=== PATIENT | male | born 1940 | race Caucasian/White ===

== ENCOUNTER → 2017-12-15 12:35 | Outpatient (CLI) | payer MEDICARE, OTHER, SELFPAY ==
[2017-12-15 14:20] LABS: Alanine Aminotransferase 34 IU/L (21-72); Albumin 4.2 g/dL (3.5-5.0); Albumin Globulin Ratio 1.5 (1.0-2.8); Alkaline Phosphatase 82 U/L (38-126); Aspartate Aminotransferase 26 IU/L (17-59); BUN Creatinine Ratio 31.3 (6-22); Bilirubin Total 0.5 mg/dL (0.2-1.3); Blood Urea Nitrogen 25 mg/dL (9-20); Calcium 8.9 mg/dL (8.4-10.2); Carbon Dioxide 24 mmol/L (22-32); Chloride 101 mmol/L (98-107); Estimated Glomerular Filt Rate > 60.0 mL/min (>60); Globulin 2.8 g/dL (1.7-4.1); Glucose 124 mg/dL (80-110); HEMOLYSIS < 15 (0-50); Sodium 137 mmol/L (137-145)
== END ==
PROVIDERS: PCP Family Medicine; Visit Provider Physician Assistant
DX: I25.10 Atherosclerotic heart disease of native coronary artery without angina pectoris (principal); I25.5 Ischemic cardiomyopathy; R06.09 Other forms of dyspnea
CPT/HCPCS: 36415; 80053; 83880

== ENCOUNTER → 2017-12-29 10:11 | Outpatient (CLI) | payer MEDICARE, OTHER, SELFPAY ==
[2017-12-29 11:37] LABS: Blood Urea Nitrogen 20 mg/dL (9-20); Carbon Dioxide 25 mmol/L (22-32); Chloride 101 mmol/L (98-107); Estimated Glomerular Filt Rate > 60.0 mL/min (>60); Glucose 102 mg/dL (80-110); HEMOLYSIS < 15 (0-50); Potassium 5.3 mmol/L (3.4-5.1); Sodium 140 mmol/L (137-145)
== END ==
PROVIDERS: PCP Family Medicine; Visit Provider Physician Assistant
DX: I25.5 Ischemic cardiomyopathy (principal)
CPT/HCPCS: 36415; 80048

== ENCOUNTER → 2018-01-13 10:30 | Outpatient (CLI) | payer MEDICARE, OTHER, SELFPAY ==
[2018-01-13 11:28] LABS: BUN Creatinine Ratio 24.4 (6-22); Blood Urea Nitrogen 22 mg/dL (9-20); Calcium 9.7 mg/dL (8.4-10.2); Carbon Dioxide 25 mmol/L (22-32); Chloride 100 mmol/L (98-107); Estimated Glomerular Filt Rate > 60.0 mL/min (>60); Glucose 111 mg/dL (80-110); HEMOLYSIS < 15 (0-50); Potassium 4.3 mmol/L (3.4-5.1); Sodium 137 mmol/L (137-145)
== END ==
PROVIDERS: PCP Family Medicine; Visit Provider Physician Assistant
DX: E78.5 Hyperlipidemia, unspecified (principal)
CPT/HCPCS: 36415; 80048

== ENCOUNTER → 2018-02-08 12:55 | Outpatient (CLI) | payer MEDICARE, OTHER, SELFPAY ==
--- NOTE | 2018-02-10 07:56 | PM.PFT.1 ---
Pulmonary Function Test Referral & Results Date Patient Seen: 02/08/18 Requesting provider: Hanna Brink Results: The spirometry demonstrates an FVC of 3.48 L which is 85% of predicted. The FEV1 was measured at 1.93 L which is 66% of predicted. The FEV1/FVC ratio was 55 which is 76% of predicted. Following the administration of bronchodilator there was no appreciable change. Lung volumes show an SVC of 3.40 L which is 76% of predicted. The diffusing capacity was measured at 11.18 which is 34% gf predicted. No hemoglobin value was provided, so no correction for potential anemia could be made, if appropriate. The maximum voluntary ventilation was reduced. Interpretation: This study demonstrates mild to moderate obstructive lung disease based on reduction in FEV1 without evidence of benefit following bronchodilator There is also mild restrictive lung disease present based on reduction in SVC There is very significant disease at the capillary alveolar level based on severe reduction of diffusing capacity. Clinical correlation suggested
== END ==
PROVIDERS: PCP Family Medicine; Visit Provider Internal Medicine
DX: R06.09 Other forms of dyspnea (principal)
CPT/HCPCS: 94010; 94060; 94726; 94729

== ENCOUNTER → 2018-02-10 12:42 | Outpatient (CLI) | payer MEDICARE, OTHER, SELFPAY ==
--- NOTE | 2018-02-10 | DI.ECHO.S_ITS ---
[facility]---------+ [facility] +---------+ : : [address] : : [place], [place] : : : : [id number] : : : : Phone: [phone]+ Echocardiogram Report + + :Name: HORACE JASSO Study Date: 02/10/2018 Height: 70 in : :[facility] Exam Location: [facility] Weight: 150 lb : : Gender: Male BSA: 1.8 m2 : :: 1940 Age: 77 yrs BP: 128/62 mmHg: :Reason For Study: CAD : : Performed By: Wilber Ray : :Referring: DEANNE TORRES : + + Interpretation Summary 1. Mildly dilated left ventricle with normal size and an estimated EF of 55 to 60% 2. Normal right ventricular size and systolic function. 3. The prosthetic valve is well seated and is functioning well. When compared to the previous echo, the wall motion has improved/normalized and the EF has increased. A prosthetic aortic valve is now present. Procedure: A two-dimensional transthoracic echocardiogram with color flow and Doppler was performed. The study quality was technically adequate. Comparison is made with the echocardiogram of 10/03/17. The patient was in normal sinus rhythm during the exam. Left Ventricle: There is normal left ventricular wall thickness. The left ventricle is mildly dilated. The ejection fraction is estimated to be 55-60%. Right Ventricle: The right ventricle is normal in size and function. Atria: Both atria are mildly dilated. The interatrial septum is intact with no evidence for an atrial septal defect. Mitral Valve: The mitral valve is normal in structure and function. There is trace mitral regurgitation. Aortic Valve: There is a bioprosthetic aortic valve. The prosthetic aortic valve is well-seated. The prosthetic aortic valve function is normal. Velocity ratio is 0.63. No aortic regurgitation is present. Tricuspid Valve: The tricuspid valve leaflets are thin and pliable. There is mild tricuspid regurgitation. The right ventricular systolic pressure is estimated at 30 mmHg assuming a right atrial pressure of 3 mm Hg. Pulmonic Valve: The pulmonic valve is normal in structure and function. There is trace pulmonic regurgitation. Great Vessels: The aortic root is normal size. The dimensions of the ascending aorta are normal. The pulmonary artery is normal size. The IVC is of normal diameter and collapses greater than 50% with a sniff. This suggests a low right atrial pressure of 3 mm Hg. Pericardium/ Pleura There is no pericardial effusion. There is no pleural effusion. MMode/2D Measurements & Calculations LVIDd: 5.7 cm LVOT diam: 2.1 cm LVIDs: 3.5 cm Ao root diam: 2.8 cm FS: 38.0 % asc Aorta Diam: 3.3 cm EPSS: 1.6 cm IVSd: 1.1 cm LVPWd: 1.1 cm LV irizarry. diameter/BSA (cm/m^2): 3.1 LV sys. diameter/BSA (cm/m^2): 1.9 LA dimension: 4.2 cm RA long axis: 4.7 cm LA A2 area: 18.9 cm2 RA area: 18.0 cm2 LA A4 area: 24.2 cm2 RA vol: 59.1 ml LA length (vol): 5.7 cm RA : 32.0 ml/m2 LA vol: 68.6 ml IVC diam: 1.7 cm LA vol index: 37.2 ml/m2 Doppler Measurements & Calculations Ao V2 max: 201.3 cm/sec LVOT Max Fuentes: 128.3 cm/sec Ao V2 mean: 142.8 cm/sec LV V1 max P.6 mmHg Ao max P.2 mmHg LV V1 VTI: 25.2 cm Ao mean P.1 mmHg CLAUDIA(I,D): 2.3 cm2 Ao V2 VTI: 38.0 cm CLAUDIA(V,D): 2.2 cm2 sev ratio: 0.66 CLAUDIA indexed to BSA (cm^2/m^2): 1.2 MV E max fuentes: 57.6 cm/sec TR max fuentes: 261.2 cm/sec MV A max fuentes: 91.0 cm/sec TR max P.3 mmHg MV E/A: 0.63 PA V2 max: 69.8 cm/sec Med Peak E' Fuentes: 5.0 cm/sec PA V2 mean: 52.0 cm/sec E/E' med: 11.6 PA mean P.2 mmHg Lat Peak E' Fuentes: 6.4 cm/sec PA pr(Accel): 46.6 mmHg E/E' lat: 9.0 PA Accel Time: 0.07 sec E/e' average: 10.3 MV dec time: 0.19 sec Pulm A Revs Fuentes: 88.8 cm/sec Reading Physician:MCKENNA
== END ==
PROVIDERS: PCP Family Medicine; Visit Provider Internal Medicine
DX: I25.10 Atherosclerotic heart disease of native coronary artery without angina pectoris (principal); I07.1 Rheumatic tricuspid insufficiency; Z95.2 Presence of prosthetic heart valve
CPT/HCPCS: 93306

== ENCOUNTER 2018-04-20 11:30 | Outpatient (RCR) | payer MEDICARE, OTHER, SELFPAY ==
[2018-01-24 11:12] VITALS: BP 144/92; RESP 16; O2SAT 94; BMI 20.3
--- NOTE | 2018-01-24 13:25 | CR.IEVALNOTE ---
CR Initial Assessment Report 10.05.17 NSTEMI;10.11.2017 CABG X 1 AVR FAILED; 4/6 STENT-LAD;VT ARREST;HTN;LVH CR Cardiac Rehab Initial Assessment Start: 01/24/18 11:11 Freq: Status: Active Protocol: Document 01/24/18 11:12 [facility] (Rec: 01/24/18 12:11 [facility] [id number]) Cardiac Rehabilitation Exercise Risk Risk High % 35-40% EF Comment: vf arrest x2 AICD No Pacemaker No Heart Rhythm NSR Comment 2 episodes of vt arrest post cabg Right Arm Blood Pressure (90/60-120/80 mmHg) 144/92 H Blood Pressure Method Manual Cuff/Auscultation BP Comment: left 142/96 Apical Resting Heart Rate: 81 Target Heart Rate: 100 Strength: Normal Pulse Rhythm: Irregular Respiratory Rate (12-24 breaths/min) 16 Respiratory Effort Non-Labored Lung Sounds: CLEAR BILATERALLY Pulse Oximetry (91-100 %) 94 Cardiac Rehabilitation Nutrition Evaluation Recent Lipid Blood Test Yes Date Blood Test Drawn 10/04/17 Total Cholesterol 143 Triglycerides 84 HDL 56 LDL 70 Lipid Medications Yes Goal for Lipids @ GOAL Lipids Comment ATORVASTATIN 40MG History of Diabetes No Comment EATS VERY HEALTHY. COOKS ALL FOOD FROM [employer]. REVIEWED HIS MENU. SHE IS WORKING ON INCREASING PROTEIN Cardiac Rehabilitation Weight Management Plan Height 177.8 cm Weight 64.41 kg Body Mass Index (BMI) 20.3 Comment GAIN 10# Vitamins & Supplements No Use Daily Intake Type RED WINE Nutrition Evaluation Referral to Diabetes Education No Nurse/Patient Discussion Yes Patient Following Diet Plan Yes Diet Mediterranean Education Primary Language MOHAWK Informatica Mdm Architect Required No Hearing Ability Normal Visual Impairment No Limitations Visual Difficutly None Education on Intake Chest Pain Short of Breath Headache Lightheaded or Dizzy Musculoskeletal Pain General Malaise Tobacco Use Former, Quit <6 Months Goal/Quit Date 10.05.2017 Tobacco Use History Discussion Ask Assess Advise Assist Arrange Environmental Exposure NO DESIRE TO SMOKE ANYMORE. DID NOT GET ANY ASSISTANCE. Referred to Smoking Cessation Class No CR Individual Education & Counseling Yes Educational Class Schedule Given Yes Hx Hypertension Yes Goal KEEPS B/P RECORD AT HOME. HIS READINGS ARE LOWER THAN WHAT I GOT TODAY. HIS B/P CUFF HAS BEEN VERIFIED BY HIS DAUGHTER A RN. Goal of BP <130/80 Yes HTN Education Discussion WILL CONTINUE TO MONITOR Medications Reconciled Yes CR Psychosocial Evaluation Goal HIS GOAL IS TO HAVE ENOUGH ENERGY TO CHOP WOOD FOR THE WINTER. HE IS MOTIVATED TO INCREASE HIS ENDURANCE Identifies Stressors HIS SOB AND A BROKEN RIB FROM CPR Psych Consult No Discussion with Patient Yes Psychotropic Medications No HQ Scoring Scale 5-7 = Mild PHQ >9 No PCP Notified No Comment STATES NOT DEPRESSED Situation LIVES AT HOME WITH HIS . HAS 3 CHILDREN Employment Status Retired Occupation / Employer DID [employer] FOR [employer] Ready for Change Number MOTIVATED CR Psychosocial Eval Continued Sternotomy Incision WELL HEALED Graft Site & Incision CRUZ Heart Murmur NONE Lung Sounds CLEAR Edema NONE Stress Management Class Yes Heart Disease & Emotion Film Yes Readiness Cooperative Motivated Patient's Story FELT MORE AND MORE SOB WITH ACTIVITY AND CHEST PAIN. WENT TO ER HERE DX:NSTEMI. TRANSFERRED TO [facility] FOR CABG X1 AND AVR. FAILED BYPASS [place] ARREST X2. STENTED THE LAD X1. LONG REHAB. 4 WEEKS TOTAL IN HOSPITAL. Treatment Prescribed for Individual Yes Needs No Treatment Change Yes: Please Continue with Cardiopulmonary Rehabilitation as Ordered Date 01/24/18 Document 01/24/18 13:05 AA (Rec: 01/24/18 13:12 AA [id number]) Cardiac Rehabilitation Exercise Fall Risk History of Falling (Immediate or No Previous) Secondary Diagnosis (More Than 2 Medical Yes Diagnoses) Ambulatory Aid None/bed rest/nurse assist IV/Heparin Lock No Gait/Transferring Normal/bedrest/immobile Mental Status Oriented to own ability Score Total 15 Risk Level Low Fall Risk Action Implement Enid Fall Risk Precautions Comment Physio ball next to rail Assistive Devices None Pollock Activity Status Index 6.6 Home Exercise Yes Mode Comment: Walking Duration Comment: 10 mins Frequency Comment: 2-3x/day Symptoms: Back Pain Limited Range of Motion Muscle Spasms Muscle Weakness Neck Pain Body Alignment Posture Forward Head Thoracic Kyphosis Ambulation Assistive Device None Orthotic/Prosthetic Devices or Brace: No Comment COPD gets winded easily, monitor pulse/ox Exercise Treadmill Results 12 min METS 2.67 Angina with Exercise no Exercise Tolerance Good Additional Comment Responds better to increase in incline over speed. 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 Increase stamina and endurance in CR in 6-8 weeks. Patient Retirement Goal(s) PT wants to be able to cut, split and haul firewood from maurice at home to the home, increase strength and pollock score in CR in 12 weeks. CR Exercises Prescription Exercise Duration (minutes) 20 METs (resistance level) 3 Frequency 2x/wk RPE 11-14 Comment increase as tolerated Exercise Duration (minutes) 20 METs (resistance level) 3 Frequency 2x/wk RPE 11-14 Comment increase as tolerated Pounds 4 Number of Reps 12 Number of Sets 2 Frequency 1x/wk RPE 11-15 Comment increase as tolerated Band Resistance 3 Number of Reps 12 Number of Sets 1 Exercise Tolerance Good Frequency 1x/wk RPE 11-15 Comment increase as tolerated
[2018-02-23 15:36] VITALS: BP 130/66
[2018-03-23 15:17] VITALS: BP 168/84
[2018-04-20 15:27] VITALS: BP 144/88; BMI 21.9
== END 2018-05-03 14:44 ==
LOC: CAR 11:30
PROVIDERS: PCP Family Medicine; Visit Provider Family Medicine
DX: I21.3 ST elevation (STEMI) myocardial infarction of unspecified site (principal)
CPT/HCPCS: 93798

== ENCOUNTER 2018-08-02 11:30 | Outpatient (RCR) | payer MEDICARE, OTHER, SELFPAY ==
[2018-05-01 14:39] VITALS: BP 132/80; RESP 14; O2SAT 95
--- NOTE | 2018-05-02 16:04 | PR.IEVALNOTE ---
Current Diagnoses Chronic obstructive pulmonary disease, unspecified (05/02/18) Past Medical History (Last Updated 03/30/18 @ 09:44 by Alex Ruiz MD) Congestive heart failure (Chronic) Vitamin D deficiency (Chronic) Coronary artery disease (Chronic) COPD (chronic obstructive pulmonary disease) (Chronic) Essential hypertension (Chronic) Hyperlipidemia (Chronic) BPH (benign prostatic hyperplasia) (Chronic) Lateral wall myocardial infarction (Chronic) Anticoagulated on warfarin (Resolved) Deficient knowledge of valve replacement (Resolved) Fractures (Resolved 2017) Lower extremity edema (Resolved) Provider Team Visit Care Team Role Provider Type Ankush Montemayor MD Attending Provider Physician Primary Care Provider Specialty: [facility] Address: [address] [place] [address], [facility] Email: [email or web address] Pulmonary Rehab Initial Evaluation [place] Pulmonary Rehab Inital Assessment Start: 05/01/18 14:32 Freq: Status: Active Protocol: Document 05/01/18 14:39 RENA (Rec: 05/01/18 14:42 RENA [id number]) [place] Exercise Assessment Dx: COPD Primary Language [employer] Teacher Required No Hearing Ability Normal Visual Impairment No Limitations Visual Difficutly None Visual Assist None Assistive Devices None History of Falling (Immediate or No Previous) Secondary Diagnosis (More Than 2 Medical Yes Diagnoses) Ambulatory Aid None/bed rest/nurse assist IV/Heparin Lock No Gait/Transfer Normal/bedrest/immobile Mental Status Oriented to own ability Comment pt has been in cardiac rehab and exercising 3x/week regularly. Pt also walks to [facility] which is 1 mile form home [place] Vital Signs Pulse Oximetry (91-100 %) 95 Nasal Cannula No Respiratory Rate (12-24 breaths/min) 14 Respiratory Effort Non-Labored Respiratory Depth Normal Assessment clear to auscultation no wheeze rhonchi, faint crackles in Left lower base Left Arm Blood Pressure (90/60-140/90 mmHg) 132/80 Blood Pressure Method Manual Cuff/Auscultation Blood Pressure Position Sitting [place] Six Minute Walk Test Oxygen Delivery Method Room Air Respiratory Rate (breaths/min) 14 Pulse Rate (beats/min) 73 O2 Saturation by Pulse Oximetry (%) 97 Ambulation Distance (feet) 250 Pulse Rate (beats/min) 81 Ambulation Distance (feet) 250 O2 Saturation by Pulse Oximetry (%) 96 Pulse Rate (beats/min) 86 Ambulatory Distance (feet) 250 O2 Saturation by Pulse Oximetry (%) 97 Pulse Rate (beats/min) 81 Ambulation Distance (feet) 200 O2 Saturation by Pulse Oximetry (%) 97 Pulse Rate (beats/min) 85 Ambulation Distance (feet) 250 O2 Saturation by Pulse Oximetry (%) 97 PUlse Rate (beats/min) 85 Ambulation Distance (feet) 225 O2 Saturation by Pulse Oximetry (%) 85 Respiratory Rate (breaths/min) 16 Pulse Rate (beats/min) 68 O2 Saturation by Pulse Oximetry (%) 98 Activity Tolerance Good Distance 1425 Divina RPE Scale 12 Oriented to RPE Scale Yes Dyspnea 3 Oriented to Dyspnea Scale Yes [place] Exercise Goals Exercise Goals use increased interval training to improve muscle strength and stamina GINGER Number and Comment 6.60 mets Short Term learn about chronic lung disease and how to manage it Mems Engineer improve strength and stamina [place] Nutrition Assessment PFT Date 02/08/18 Forced Vital Capacity (FVC) 3.48 85% Slow Vital Capacity (SVC) 3.40 76% Forced Exp. Volume/Forced Vital Cap 55 76% Ratio (FEV1/FVC Ratio) Forced Expiratory Volume in 1 sec. 1.63 66% Diffusing Capacity of the Lung (DLCO) 34% [place] Education Pre-Test Score 93 Tobacco Use Former, Quit <6 Months Tobacco Product Used cigarettes Total Years Used 63 Packs Per Day 1 Use Yes Type wine Amount 1-2 glasses Frequency daily Education Topics Breathing Retraining Discussed Education Requirements on Yes Intake [place] Psychosocial Initial Assess HADS Score 3 HADS Score 4 Marital Status Referral Needed No
--- NOTE | 2018-05-31 16:10 | PR.REVALNOTE ---
Current Diagnoses Chronic obstructive pulmonary disease, unspecified (05/31/18) Past Medical History (Last Updated 03/30/18 @ 09:44 by Alex Ruiz MD) Congestive heart failure (Chronic) Vitamin D deficiency (Chronic) Coronary artery disease (Chronic) COPD (chronic obstructive pulmonary disease) (Chronic) Essential hypertension (Chronic) Hyperlipidemia (Chronic) BPH (benign prostatic hyperplasia) (Chronic) Lateral wall myocardial infarction (Chronic) Anticoagulated on warfarin (Resolved) Deficient knowledge of valve replacement (Resolved) Fractures (Resolved 2018) Lower extremity edema (Resolved) Provider Team Visit Care Team Role Provider Type Ankush Montemayor MD Attending Provider Physician Primary Care Provider Specialty: [facility] Practice Address: [address] [place] [address], [employer] Email: [email or web address] Pulmonary Rehab Re-Evaluation [place] Pulmonary Rehab. Re-Assessment Start: 05/01/18 14:32 Freq: Status: Active Protocol: Document 05/31/18 16:03 RENA (Rec: 05/31/18 16:10 Fartun [id number]) [place] Exercise Re-Assessment New Session Number 1-13 Type Nustep Treadmill Rower METs (resistance level) 5.54 Rwr,4.06 TM, 3.68 NS % Improvement 7%Rwr, 7%TM, 12% NS Interval Training Yes: 6.95TM 7.02 NS Shortness of Breath with Exercise Yes Desaturation with Exercise No Free Weight Yes: 5# 12r 2s Band Level Yes: #4 [place] Education Re-Assessment Topics Normal Anatomy and Physiology Chronic Lung Disease Description and Interpretation Medical Tests Breathing Retraining Goals Pt will Master PLB and Diaphragmatic Breathing Pt will Master Energy Conserving Techniques Pt will learn exercise safety Pt will continue ED topics until completion [place] Psychosocial Re-Assessment Patient in Class Regularly Yes Goals Pt will continue to attend classes 3x wk Participate in social and educational discussion Received emotional support from family/friends
--- NOTE | 2018-07-17 10:53 | PR.REVALNOTE ---
Current Diagnoses Chronic obstructive pulmonary disease, unspecified (07/17/18) Past Medical History (Last Updated 03/30/18 @ 09:44 by Alex Ruiz MD) Congestive heart failure (Chronic) Vitamin D deficiency (Chronic) Coronary artery disease (Chronic) COPD (chronic obstructive pulmonary disease) (Chronic) Essential hypertension (Chronic) Hyperlipidemia (Chronic) BPH (benign prostatic hyperplasia) (Chronic) Lateral wall myocardial infarction (Chronic) Anticoagulated on warfarin (Resolved) Deficient knowledge of valve replacement (Resolved) Fractures (Resolved 2018) Lower extremity edema (Resolved) Provider Team Visit Care Team Role Provider Type Ankush Montemayor MD Attending Provider Physician Primary Care Provider Specialty: [facility] Practice Address: [address] [place] [address], [facility] Email: [email or web address] Pulmonary Rehab Re-Evaluation [place] Pulmonary Rehab. Re-Assessment Start: 05/01/18 14:32 Freq: Status: Active Protocol: Document 05/31/18 16:03 RENA (Rec: 05/31/18 16:10 RENA [id number]) [place] Exercise Re-Assessment New Session Number 1-13 Type Nustep Treadmill Rower METs (resistance level) 5.54 Rwr,4.06 TM, 3.68 NS % Improvement 7%Rwr, 7%TM, 12% NS Interval Training Yes: 6.95TM 7.02 NS Shortness of Breath with Exercise Yes Desaturation with Exercise No Free Weight Yes: 5# 12r 2s Band Level Yes: #4 [place] Education Re-Assessment Topics Normal Anatomy and Physiology Chronic Lung Disease Description and Interpretation Medical Tests Breathing Retraining Goals Pt will Master PLB and Diaphragmatic Breating Pt will Master Energy Conserving Techniques Pt will learn exercise safety Pt will continue ED topics until completion [place] Psychosocial Re-Assessment Patient in Class Regularly Yes Goals Pt will continue to attend classes 3x wk Participate in social and educational discussion Received emotional support from family/friends Document 07/17/18 10:49 RENA (Rec: 07/17/18 10:53 RENA [id number]) [place] Exercise Re-Assessment New Session Number 14-26 Type Treadmill Rower Elliptical METs (resistance level) TM 4.35,RWR,5.54,ELL 3.43 % Improvement TM7%, EL9% Interval Training Yes: 7.82 TM Shortness of Breath with Exercise Yes Desaturation with Exercise No Free Weight Yes: 5# 12R 2S Band Level Yes: #5 [place] Education Re-Assessment Topics Normal Anatomy and Physiology Chronic Lung Disease Description and Interpretation Medical Tests Breathing Retraining Bronchial Hygiene Medication Benefits of Exercise Activities of daily living/ Leisure Activities Goals Pt will Master PLB and Diaphragmatic Breathing Pt will Master Energy Conserving Techniques Pt will learn exercise safety Pt will continue ED topics until completion [place] Psychosocial Re-Assessment Patient in Class Regularly Yes Interventions Pt attending class regularly Goals Pt will continue to attend classes 3x wk Participate in social and educational discussion Received emotional support from family/friends
--- NOTE | 2018-08-02 16:04 | PR.DCNOTE ---
Current Diagnoses Chronic obstructive pulmonary disease, unspecified (08/02/18) Past Medical History (Last Updated 03/30/18 @ 09:44 by Alex Ruiz MD) Congestive heart failure (Chronic) Vitamin D deficiency (Chronic) Coronary artery disease (Chronic) COPD (chronic obstructive pulmonary disease) (Chronic) Essential hypertension (Chronic) Hyperlipidemia (Chronic) BPH (benign prostatic hyperplasia) (Chronic) Lateral wall myocardial infarction (Chronic) Anticoagulated on warfarin (Resolved) Deficient knowledge of valve replacement (Resolved) Fractures (Resolved 2018) Lower extremity edema (Resolved) Provider Team Visit Care Team Role Provider Type Ankush Montemayor MD Attending Provider Non-Staff Primary Care Provider Specialty: [facility] Address: [address] [place] [address], [address], [place], [address] Email: Pulmonary Rehab Discharge Evaluation [place] Pulmonary Rehab. DC Assessment Start: 05/01/18 14:32 Freq: Status: Active Protocol: Document 08/02/18 15:50 RENA (Rec: 08/02/18 16:04 RENA [id number]) [place] Exercise Discharge Assess Session 9 Type Treadmill Rower Elliptical METs (resistance level) 6.41elli, 5.64rwr % Improvement 104%delma 2% Interval Training Yes: delma 13.36 Shortness of Breath with Exercise Yes Desaturation with Exercise No Free Weight Yes: 6# 12r 2s Band Level Yes: #6 [place] Nutrition DC Assessment Patient Ready Yes Reason Completed Max Sessions [place] Education DC Assessment Education Topics Normal Pulmonary Anatomy and Physiology Chronic Lung Disease Description and Interpretation of Medical Tests Breathing Retraining Bronchial Hygiene Medications Benefits of Exercise Activities of Daily Living/ Leisure Activities Eating Right Irritant Avoidance/Prevention of Respiratory Infection Coping with Chronic Lung Disease Oxygen How and When Asthma Education Target Goals Pt was educated on home exercise prescription Pt educated on home resistance training Pt educated on oxygen therapy for home PT educated on medication's taken at home Pt educated on PBL and relaxation techniques [place] Psychosocial DC Assessment HADS Depression Score 3 HADS Anxiety Score 4 Phase III Yes Referral Needed No [place] Six Minute Walk Test Oxygen Delivery Method Room Air Respiratory Rate (breaths/min) 16 Pulse Rate (beats/min) 77 O2 Saturation by Pulse Oximetry (%) 98 Pulse Rate (beats/min) 90 Ambulation Distance (feet) 300 O2 Saturation by Pulse Oximetry (%) 96 Pulse Rate (beats/min) 97 Ambulation Distance (feet) 300 O2 Saturation by Pulse Oximetry (%) 96 Pulse Rate (beats/min) 95 Ambulatory Distance (feet) 300 O2 Saturation by Pulse Oximetry (%) 97 Pulse Rate (beats/min) 100 Ambulation Distance (feet) 300 O2 Saturation by Pulse Oximetry (%) 96 Pulse Rate (beats/min) 95 Ambulation Distance (feet) 300 O2 Saturation by Pulse Oximetry (%) 98 PUlse Rate (beats/min) 104 Ambulation Distance (feet) 325 O2 Saturation by Pulse Oximetry (%) 97 Respiratory Rate (breaths/min) 14 Pulse Rate (beats/min) 94 O2 Saturation by Pulse Oximetry (%) 96 Activity Tolerance Good Distance 1825 Divina RPE Scale 13 Oriented to RPE Scale Yes Dyspnea 4 Oriented to Dyspnea Scale Yes
== END 2018-08-03 09:08 ==
LOC: PUL 11:30
PROVIDERS: PCP Family Medicine; Visit Provider Family Medicine
DX: J44.9 Chronic obstructive pulmonary disease, unspecified (principal)
CPT/HCPCS: G0237; G0238

== ENCOUNTER → 2018-11-06 12:21 | Outpatient (CLI) | payer MEDICARE, OTHER, SELFPAY ==
--- NOTE | 2018-11-06 12:25 | DI.RAD.S_ITS ---
PROCEDURE: XR CHEST 2V INDICATIONS: coughing up blood TECHNIQUE: 2 views of the chest were acquired. COMPARISON: [facility], CHEST 2 VIEW, 10/03/2017, 9:28. [facility], , CHEST 2 VIEW, 03/13/2015, 12:40. FINDINGS: Surgical changes and devices: Sternotomy wires, expandable stent aortic valve annulus present, no operative complications seen. Lungs and pleura: Lungs are abnormal with a mild interstitial prominence previously present and also flattening of the diaphragms with an appearance suggestive of prior smoking history. No pleural effusions or pneumothorax. Mediastinum: Mediastinal contours are normal. Heart size is normal. Bones and chest wall: No suspicious bony abnormalities. Soft tissues appear unremarkable. IMPRESSION: Presumed prior smoking history, flattening of the diaphragms on the lateral view may reflect mild COPD. Aortic valve expandable annulus stent now present with sternotomy wires. Chronic mild interstitial prominence but no sign of cardiomegaly, aneurysmal dilatation of the aorta, or CHF. Dictated by: Aguilar Riley M.D. on 11/06/2018 at 13:11 Approved by: Aguilar Riley M.D. on 11/06/2018 at 13:12
== END ==
PROVIDERS: PCP Student in an Organized Health Care Education/Training Program; Visit Provider Nurse Practitioner
DX: R04.2 Hemoptysis (principal); J44.9 Chronic obstructive pulmonary disease, unspecified; Z95.2 Presence of prosthetic heart valve
CPT/HCPCS: 71046

== ENCOUNTER → 2019-02-16 15:45 | Outpatient (CLI) | payer MEDICARE, OTHER, SELFPAY | PROVIDERS: PCP Student in an Organized Health Care Education/Training Program; Visit Provider Internal Medicine Critical Care Medicine | DX: R91.8 Other nonspecific abnormal finding of lung field (principal) ==

== ENCOUNTER → 2019-02-19 10:25 | Outpatient (CLI) | payer MEDICARE, OTHER, SELFPAY | PROVIDERS: PCP Student in an Organized Health Care Education/Training Program; Visit Provider Internal Medicine Critical Care Medicine | DX: R91.8 Other nonspecific abnormal finding of lung field (principal) | CPT/HCPCS: 87070; 87205; 88108 ==

== ENCOUNTER → 2019-02-20 10:13 | Outpatient (CLI) | payer MEDICARE, OTHER, SELFPAY | PROVIDERS: PCP Student in an Organized Health Care Education/Training Program; Visit Provider Internal Medicine Critical Care Medicine | DX: R91.8 Other nonspecific abnormal finding of lung field (principal) | CPT/HCPCS: 87070; 87077; 87205; 88108 ==

== ENCOUNTER → 2019-02-21 11:21 | Outpatient (CLI) | payer MEDICARE, OTHER, SELFPAY | PROVIDERS: PCP Student in an Organized Health Care Education/Training Program; Visit Provider Internal Medicine Critical Care Medicine | DX: R91.8 Other nonspecific abnormal finding of lung field (principal) | CPT/HCPCS: 87070; 87205; 88108 ==

== ENCOUNTER → 2019-12-13 10:54 | Outpatient (CLI) | payer MEDICARE, OTHER, SELFPAY ==
[2019-12-13 13:10] LABS: BUN Creatinine Ratio 20.5 (6-22); Blood Urea Nitrogen 17 mg/dL (9-20); Calcium 9.3 mg/dL (8.4-10.2); Carbon Dioxide 22 mmol/L (22-32); Chloride 107 mmol/L (98-107); Estimated Glomerular Filt Rate > 60.0 mL/min (>60); Glucose 99 mg/dL (80-110); HEMOLYSIS < 15 (0-50); Potassium 4.6 mmol/L (3.4-5.1); Sodium 138 mmol/L (137-145)
== END ==
PROVIDERS: PCP Student in an Organized Health Care Education/Training Program; Referring Provider Student in an Organized Health Care Education/Training Program; Visit Provider Student in an Organized Health Care Education/Training Program
DX: I10 Essential (primary) hypertension (principal)
CPT/HCPCS: 36415; 80048

== ENCOUNTER → 2020-10-08 09:13 | Outpatient (CLI) | payer MEDICARE, OTHER, SELFPAY ==
[2020-10-08 11:15] LABS: COVID19 -Nasal RAPID Negative (Negative)
== END ==
PROVIDERS: PCP Student in an Organized Health Care Education/Training Program; Visit Provider Student in an Organized Health Care Education/Training Program
DX: Z20.822 Contact with and (suspected) exposure to COVID-19 (principal)
CPT/HCPCS: 87635; C9803

== ENCOUNTER 2021-03-23 14:12 | Emergency (ER) | payer MEDICARE, SELFPAY ==
[2021-03-23 14:25] VITALS: BP 164/100; PULSE 93; RESP 15; TEMP 36.7; O2SAT 95; BMI 23.6
[2021-03-23 14:27] VITALS: BP 159/101; PULSE 98; O2SAT 95
[2021-03-23 14:30] VITALS: BP 169/100; PULSE 91; RESP 28; O2SAT 96
--- NOTE | 2021-03-23 14:30 | DI.RAD.S_ITS ---
PROCEDURE: XR CHEST 1V INDICATIONS: Possible stroke TECHNIQUE: One view of the chest was acquired. COMPARISON: [facility], CR, XR CHEST 2V, 11/06/2018, 12:31. FINDINGS: Surgical changes and devices: Sternal wires are noted. Lungs and pleura: Mild appearance of increased linear right basilar opacities. No pleural effusions or pneumothorax. There is flattening of the hemidiaphragms and mild hyperinflation suggestive of COPD. Mediastinum: Mediastinal contours appear normal. Heart size is normal. Bones and chest wall: No suspicious bony lesions. Overlying soft tissues appear unremarkable. IMPRESSION: Mild increased appearance of linear right basilar opacities suggestive of atelectasis/scarring. Dictated by: Sandra Watson M.D. on 03/23/2021 at 14:51 Approved by: Sandra Watson M.D. on 03/23/2021 at 14:52
--- NOTE | 2021-03-23 14:33 | DI.CT.S_ITS ---
PROCEDURE: CT STROKE INDICATIONS: sent for blockage in left eye since Tuesday,Sami sent him TECHNIQUE: Noncontrast 4.5 mm thick angled axial sections acquired from the foramen magnum to the vertex, with coronal reformats. For radiation dose reduction, the following was used: automated exposure control, adjustment of mA and/or kV according to patient size. COMPARISON: None. FINDINGS: Image quality: Excellent. CSF spaces: Basal cisterns are patent. No extra-axial fluid collections. The ventricles are symmetric in size and shape. Brain: No intracranial bleeds or masses. There is cerebral volume loss for age, with resultant ventricular and sulcal prominence. There are periventricular and deep white matter chronic small vessel ischemic changes. There is intracranial internal carotid artery atherosclerosis. Skull and face: Calvarium and visualized facial bones appear intact, without suspicious lesions. Sinuses: Visualized sinuses and mastoids are clear. IMPRESSION: 1. No acute intracranial process. 2. Moderate atrophy and chronic microvascular ischemic changes. The above findings were discussed Dr. Mickey Stauffer on 03/23/21 at 2:48 p.m. This study fulfills neurological imaging criteria for inclusion or exclusion of acute stroke therapies based on available published neurological guidelines. Dictated by: Sandra Watson M.D. on 03/23/2021 at 14:47 Approved by: Sandra Watson M.D. on 03/23/2021 at 14:48
[2021-03-23 14:44] VITALS: BP 149/72; PULSE 86; RESP 29; O2SAT 96
[2021-03-23 14:46] LABS: Add Manual Diff / Slide Review NO; Basophils Absolute Auto 0 /uL (0-100); Basophils Percent Auto 0.4 % (0-2); Eosinophils Absolute Auto 100 /uL (0-450); Eosinophils Percent Auto 1.6 % (2-4); Hemoglobin 13.7 g/dL (13.5-17.5); Lymphocytes Absolute Auto 1400 /uL (1100-4500); Lymphocytes Percent Auto 15.8 % (25-40); Mean Corpuscular HGB Conc 34.2 % (30-36); Mean Corpuscular Hemoglobin 34.3 PG (26-34); Mean Corpuscular Volume 100.3 fL (80-100); Monocytes Absolute Auto 900 /uL (0-900); Monocytes Percent Auto 10.8 % (3-14); Neutrophils Absolute Auto 6100 /uL (1500-7000); Neutrophils Percent Auto 71.4 % (50-75); Platelet Count 219 X10^3/uL (150-400); Red Blood Cell Count 3.99 X10^6/uL (4.5-5.9); Red Cell Distribution Width 13.8 % (11.6-14.8); White Blood Cell Count 8.6 X10^3/uL (4.5-11.0)
[2021-03-23 14:51] LABS: Prothrombin Time 11.8 SECONDS (10.1-12.7)
[2021-03-23 14:54] LABS: PTT Partial Thromboplastin Tim 36 SECONDS (26.4-36.2)
[2021-03-23 15:00] VITALS: PULSE 83; RESP 21; O2SAT 93
[2021-03-23 15:00] LABS: Alanine Aminotransferase 16 IU/L (<50); Albumin 4.5 g/dL (3.5-5.0); Albumin Globulin Ratio 1.6 (1.0-2.8); Alkaline Phosphatase 92 U/L (38-126); Aspartate Aminotransferase 21 IU/L (17-59); BUN Creatinine Ratio 20.6 (6-22); Bilirubin Total 0.9 mg/dL (0.2-1.3); Blood Urea Nitrogen 20 mg/dL (9-20); Calcium 9.3 mg/dL (8.4-10.2); Carbon Dioxide 23 mmol/L (22-32); Chloride 108 mmol/L (98-107); Creatine Kinase 48 U/L (55-170); Estimated Glomerular Filt Rate > 60.0 mL/min (>60); Globulin 2.9 g/dL (1.7-4.1); Glucose 128 mg/dL (80-110); HEMOLYSIS < 15 (0-50); Potassium 3.9 mmol/L (3.4-5.1); Sodium 139 mmol/L (137-145); Total Protein 7.4 g/dL (6.3-8.2)
[2021-03-23 15:01] VITALS: BP 132/76; PULSE 83; RESP 24; O2SAT 93
--- NOTE | 2021-03-23 15:11 | ED.NEUROSD ---
HPI - Neuro Symptoms/Deficit General Chief Complaint: Neuro Symptoms/Deficit Stated Complaint: referred by Dr. Gallardo for scan of neck Time Seen by Provider: 03/23/21 15:03 Source: patient Mode of arrival: Ambulatory Limitations: no limitations History of Present Illness HPI Narrative: Patient sent here from his director of business applications, Dr. Gallardo. Dr. Gallardo spoke with me by phone that he is concerned that patient needs stroke workup. He saw patient in his office today and diagnosed of left retinal artery occlusion. Patient states he awoke this past Tuesday, 2 days ago with vision changes in his left eye. It has improved. Patient has no history of stroke. Is on Plavix for coronary disease. Denies any facial droop slurred speech or any limb weakness. No headache. Patient CT scan unremarkable. EKG and laboratory studies have returned. I spoke with patient that he needs to stay for stroke workup. He states he cannot stay. He states his is in the car waiting for him. [place] Please see documentation below for leaving against medical advice. Understands that this blocked artery in the left eye could be signs of a stroke and future strokes can happen. He is on Plavix for coronary artery disease. No chest pain. No confusion. Patient did not want to wait for my completion of my neurologic exam and stroke scale. He did not want any further testing or angiogram or MRI. He wants to leave now On Anticoagulants: Yes (plavix) Related Data Home Medications Medication Instructions Recorded Confirmed isosorbide mononitrate 30 mg 15 mg PO DAILY tab 12/13/19 09/29/20 tablet,extended release 24 hr Previous Rx's Medication Instructions Recorded acetaminophen 325 mg tablet 650 mg PO Q6H PRN #30 tab 11/28/17 (Tylenol) clopidogrel 75 mg tablet 75 mg PO DAILY #90 tab 12/13/19 finasteride 5 mg tablet 5 mg PO DAILY #90 tab 12/13/19 albuterol sulfate 90 mcg/actuation 2 puff INHALATION Q4-6H PRN #6.7 g 09/29/20 aerosol inhaler clobetasol 0.05 % topical cream 1 applic TOP BEDTIME #15 g 09/29/20 tamsulosin 0.4 mg capsule 0.8 mg PO DAILY #180 cap 09/29/20 atorvastatin 40 mg tablet 40 mg PO DAILY #90 tab 10/27/20 metoprolol succinate 25 mg 25 mg PO BID #180 tab 11/05/20 tablet,extended release 24 hr losartan 50 mg tablet 50 mg PO DAILY #90 tab 11/26/20 Allergies Allergy/AdvReac Type Severity Reaction Status Date / Time Penicillins Allergy Intermediate HIVES Verified 03/23/21 14:31 Review of Systems Review of Systems Narrative: GENERAL: Denies chills, fatigue, malaise, fever, sweats. HEENT: Denies sinus pain, ear pain, sore throat, complains of left vision changes RESPIRATORY: Denies dyspnea, cough CARDIOVASCULAR: Denies chest pain, palpitations GASTROINTESTINAL: Denies nausea, vomiting, abdominal pain : Denies dysuria, frequency, hematuria MUSCULOSKELETAL: denies muscle or bony pain SKIN: Denies rash, skin lesions NEUROLOGIC: Denies weakness, numbness ROS Unobtainable: All systems reviewed & are unremarkable except as noted in HPI and below Hematologic/Lymphatic On Anticoagulants: Yes (plavix) Patient History Medical History Anticoagulated on warfarin BPH (benign prostatic hyperplasia) Congestive heart failure COPD (chronic obstructive pulmonary disease) Coronary artery disease Deficient knowledge of valve replacement Essential hypertension Fractures (2018) Hyperlipidemia Lateral wall myocardial infarction Lower extremity edema Vitamin D deficiency Surgical History Hx of cataract surgery (2016) S/P aortic valve replacement with bioprosthetic valve S/P CABG (coronary artery bypass graft) (10/2017) Family History Father Heart disease Mother Cancer Sister Cancer Social History marital status: Smoking Status: Former smoker Tobacco: How many years used: 63 alcohol intake: current substance use type: does not use Smoking Status: Former smoker alcohol intake frequency: holidays/special occasions only Substance Use Type: does not use Exam Narrative Exam Narrative: GENERAL: in no distress, not toxic not dyspneic HEAD: Normocephalic. EYES: Pupils equal round No scleral icterus. No injection no discharge ENT: Mucous membranes moist. NECK: Trachea midline. CARDIOVASCULAR: Regular rate and rhythm without murmurs RESPIRATORY: Clear to auscultation. Breath sounds equal bilaterally. No wheezes, rales, or rhonchi. GASTROINTESTINAL: Abdomen soft, non-tender EXTREMITIES: No gross deformities. BACK: No flank tenderness. NEURO: AOx4. Clear speech no facial droop light touch bilateral face hands and legs. Strong equal a and p mechanic. SKIN: Warm and dry PSYCH: Not anxious, is cooperative Initial Vital Signs Initial Vital Signs: Vital Signs Temperature 98.0 F 03/23/21 14:25 Pulse Rate 93 H 03/23/21 14:25 Respiratory Rate 15 03/23/21 14:25 Blood Pressure 164/100 H 03/23/21 14:25 Pulse Oximetry 95 03/23/21 14:25 Course Course Course Narrative: No new issues during course of stay. Please see leaving against medical advice documentation. Orders Ordered: ED Orders 03/23/21 14:30 XR chest 1V Stat EKG-12 Lead Stat 03/23/21 14:33 CT Stroke Stat Complete Blood Count AUTO DIFF Stat Comprehensive Metabolic Panel Stat Partial Thromboplastin Time Stat Prothrombin Time INR Stat Troponin & CK Cardiac Panel Stat Reevaluation(s) Reevaluation #1: Patient states he cannot stay for stroke workup. I discussed with him leaving against medical advice Time: 15:18 Consultations Consultation #1: Spoke with tele stroke, by phone, Dr. Luciano, she agrees that patient should stay for stroke workup. Otherwise will need to leave against medical advice. Additional Consultation(s): Received call from radiologist Dr. Watson, CT head negative at 2:48 p.m. Vital Signs Vital signs: Vital Signs - 8 hr 03/23/21 14:25 03/23/21 14:27 03/23/21 14:30 Temperature 98.0 F Pulse Rate 93 H 98 H 91 H Respiratory Rate 15 28 H Blood Pressure 164/100 H 159/101 H 169/100 H Pulse Oximetry 95 95 96 03/23/21 14:44 03/23/21 15:00 03/23/21 15:01 Temperature Pulse Rate 86 83 83 Respiratory Rate 29 H 21 24 Blood Pressure 149/72 H 132/76 Pulse Oximetry 96 93 93 MDM - Neuro Symptoms/Deficit Differential Diagnosis Differential diagnosis: Likely cerebrovascular accident, transient cerebral ischemia and other (Retinal artery occlusion) Lab Data Result diagrams: 03/23/21 14:33 03/23/21 14:33 Labs: Lab Results 03/23/21 03/23/21 03/23/21 Range/Units 14:33 14:33 14:33 WBC 8.6 (4.5-11.0) X10^3/uL RBC 3.99 L (4.5-5.9) X10^6/uL Hgb 13.7 (13.5-17.5) g/dL Hct 40.0 L (41-53) % MCV 100.3 H (80-100) fL MCH 34.3 H (26-34) PG MCHC 34.2 (30-36) % RDW 13.8 (11.6-14.8) % Plt Count 219 (150-400) X10^3/uL Neut % (Auto) 71.4 (50-75) % Lymph % (Auto) 15.8 L (25-40) % Crenshaw % (Auto) 10.8 (3-14) % Eos % (Auto) 1.6 L (2-4) % Baso % (Auto) 0.4 (0-2) % Neut # (Auto) 6100 (6861-8824) /uL Lymph # (Auto) 1400 (1613-8571) /uL Crenshaw # (Auto) 900 (0-900) /uL Eos # (Auto) 100 (0-450) /uL Baso # (Auto) 0 (0-100) /uL PT 11.8 (10.1-12.7) SECONDS INR 1.0 (0.9-1.3) APTT 36 (26.4-36.2) SECONDS Sodium 139 (137-145) mmol/L Potassium 3.9 (3.4-5.1) mmol/L Chloride 108 H (98-107) mmol/L Carbon Dioxide 23 (22-32) mmol/L BUN 20 (9-20) mg/dL Creatinine 0.97 (0.66-1.25) mg/dL Estimated GFR > 60.0 (>60) mL/min BUN/Creatinine Ratio 20.6 (6-22) Glucose 128 H (80-110) mg/dL Calcium 9.3 (8.4-10.2) mg/dL Total Bilirubin 0.9 (0.2-1.3) mg/dL AST 21 (17-59) IU/L ALT 16 (<50) IU/L Alkaline Phosphatase 92 (38-126) U/L Total Creatine Kinase 48 L (55-170) U/L CK-MB (CK-2) TNP CK-MB (CK-2) Rel Index TNP Troponin I < 0.012 (0.01-0.034) ng/mL Total Protein 7.4 (6.3-8.2) g/dL Albumin 4.5 (3.5-5.0) g/dL Globulin 2.9 (1.7-4.1) g/dL Albumin/Globulin Ratio 1.6 (1.0-2.8) Imaging Data CT scan - head: Radiologist's Impression: [address] [id number] Scan ReportSigned Patient: Jesús Trevino WMR#: [id number]: 9Acct:[id number]/Sex: 80 / MDate of Service: 03/23/21Loc: EDAccession Number: [id number] Procedure: CT Stroke Ordering Provider: Mickey Stauffer MD PROCEDURE: CT STROKE INDICATIONS: sent for blockage in left eye since Tuesday,Sami sent him TECHNIQUE: Noncontrast 4.5 mm thick angled axial sections acquired from the foramen magnum to the vertex, with coronal reformats. For radiation dose reduction, the following was used: automated exposure control, adjustment of mA and/or kV according to patient size. COMPARISON: None. FINDINGS: Image quality: Excellent. CSF spaces: Basal cisterns are patent. No extra-axial fluid collections. The ventricles are symmetric in size and shape. Brain: No intracranial bleeds or masses. There is cerebral volume loss for age, with resultant ventricular and sulcal prominence. There are periventricular and deep white matter chronic small vessel ischemic changes. There is intracranial internal carotid artery atherosclerosis. Skull and face: Calvarium and visualized facial bones appear intact, without suspicious lesions. Sinuses: Visualized sinuses and mastoids are clear. IMPRESSION: 1. No acute intracranial process. 2. Moderate atrophy and chronic microvascular ischemic changes. The above findings were discussed Dr. Mickey Stauffer on 03/23/21 at 2:48 p.m. This study fulfills neurological imaging criteria for inclusion or exclusion of acute stroke therapies based on available published neurological guidelines. Dictated by: Sandra Watson M.D. on 03/23/2021 at 14:47 Approved by: Sandra Watson M.D. on 03/23/2021 at 14:48 Chest x-ray: Radiologist's Impression: [address] [id number] ReportSigned Patient: Jesús Trevino WMR#: [id number]: [id number]:[id number]/Sex: 80 / MDate of Service: 03/23/21Loc: EDAccession Number: [id number] Procedure: XR chest 1V Ordering Provider: Mickey Stauffer MD PROCEDURE: XR CHEST 1V INDICATIONS: Possible stroke TECHNIQUE: One view of the chest was acquired. COMPARISON: [facility], , XR CHEST 2V, 11/06/2018, 12:31. FINDINGS: Surgical changes and devices: Sternal wires are noted. Lungs and pleura: Mild appearance of increased linear right basilar opacities. No pleural effusions or pneumothorax. There is flattening of the hemidiaphragms and mild hyperinflation suggestive of COPD. Mediastinum: Mediastinal contours appear normal. Heart size is normal. Bones and chest wall: No suspicious bony lesions. Overlying soft tissues appear unremarkable. IMPRESSION: Mild increased appearance of linear right basilar opacities suggestive of atelectasis/scarring. Dictated by: Sandra Watson M.D. on 03/23/2021 at 14:51 Approved by: Sandra Watson M.D. on 03/23/2021 at 14:52 ECG Data Interpretation: Sinus rhythm with occasional PVC. Rate 83. No ST elevation or depression. [facility] Narrative Medical decision making narrative: I implored with patient to stay for stroke workup. He is awake alert oriented x4. No altered mental status. I informed him neurology and his director of business applications recommends him to stay for stroke workup. He refuses. Risks of stroke, primary injury, , heart attack, loss of limb or organs can happen. Benefits to stay would be for stroke workup and prevention of adverse events. He refuses. Discharge Plan Departure Patient Disposition: Left Against Medical Advice Clinical Impression: Acute retinal artery occlusion Activity Restrictions/Additional Instructions: You have declined further treatment and admission to the hospital for treatment and workup for stroke. Return immediately if you change your mind Prescriptions: No Action acetaminophen [Tylenol] 325 mg tablet 650 mg PO Q6H PRN (Reason: pain) Qty: 30 RF: 0 atorvastatin 40 mg tablet 40 mg PO DAILY Qty: 90 RF: 3 metoprolol succinate 25 mg tablet extended release 24 hr 25 mg PO BID Qty: 180 RF: 3 losartan 50 mg tablet 50 mg PO DAILY Qty: 90 RF: 3 isosorbide mononitrate 30 mg tablet extended release 24 hr 15 mg PO DAILY RF: 0 clopidogrel 75 mg tablet 75 mg PO DAILY Qty: 90 RF: 3 finasteride 5 mg tablet 5 mg PO DAILY Qty: 90 RF: 3 Hold Instructions: Hold until December 2020 tamsulosin 0.4 mg capsule 0.8 mg PO DAILY Qty: 180 RF: 3 clobetasol 0.05 % cream 1 applic TOP BEDTIME Qty: 15 RF: 11 albuterol sulfate 90 mcg/actuation HFA aerosol inhaler 2 puff INHALATION Q4-6H PRN (Reason: shortness of breath or wheezing) Qty: 6.7 RF: 11 Referrals: Alex Ruiz MD [Primary Care Provider] - Stand Alone Forms: Against Medical Advice
[2021-03-23 15:12] LABS: Troponin I < 0.012 ng/mL (0.01-0.034)
== END 2021-03-23 15:20 | disposition left against medical advice (07) ==
PROVIDERS: Emergency Provider Emergency Medicine; PCP Student in an Organized Health Care Education/Training Program
DX: H34.9 Unspecified retinal vascular occlusion (principal); Z79.01 Long term (current) use of anticoagulants
CPT/HCPCS: 36415; 70450; 71045; 80053; 82550; 84484; 85025; 85610; 85730; 93005; 93010; 99284

== ENCOUNTER → 2021-05-15 11:05 | Outpatient (CLI) | payer MEDICARE, SELFPAY ==
[2021-05-15 12:43] LABS: Cholesterol 114 mg/dL (140-199); HDL Cholesterol 58 mg/dL (40-60); LDL Cholesterol Calculated 35 mg/dL (<100); Triglycerides 105 mg/dL (35-150)
== END ==
PROVIDERS: PCP Student in an Organized Health Care Education/Training Program; Referring Provider Internal Medicine; Visit Provider Internal Medicine
DX: I25.10 Atherosclerotic heart disease of native coronary artery without angina pectoris (principal)
CPT/HCPCS: 36415; 80061

== ENCOUNTER → 2021-05-19 12:48 | Outpatient (CLI) | payer MEDICARE, SELFPAY ==
--- NOTE | 2021-05-19 12:50 | DI.US.S_ITS ---
PROCEDURE: US CAROTID DOPPLER BI INDICATIONS: CEREBRAL INFARCTION TECHNIQUE: Color and pulse Doppler interrogation was performed of both carotid systems, with image documentation and velocity measurements. COMPARISON: [facility], CT, CT STROKE, 03/23/2021, 14:35. FINDINGS: Stenosis calculations are based on SRU (Society of Radiologists in Ultrasound) criteria. Right side: Brachial blood pressure: 130/73 mm Hg. Common carotid artery peak systolic velocity: 79 cm/sec. Internal carotid artery peak systolic velocity: 327 cm/sec. Internal carotid artery end diastolic velocity: 90 cm/sec. External carotid artery peak systolic velocity: 132 cm/sec. ICA/CCA peak systolic ratio: 4.2 Ahmadi scale imaging description: Prominent atherosclerotic changes can be seen, with shadowing. Percent internal carotid artery stenosis: Greater than 70%. Vertebral artery: Flow direction is antegrade. Left side: Brachial blood pressure: 135/74 mm Hg. Common carotid artery peak systolic velocity: 103 cm/sec. Internal carotid artery peak systolic velocity: 160 cm/sec. Internal carotid artery end diastolic velocity: 49 cm/sec. External carotid artery peak systolic velocity: 234 cm/sec. ICA/CCA peak systolic ratio: 1.3 Ahmadi scale imaging description: Moderate atherosclerotic change can be seen. Calcified plaque with shadowing can be seen. Percent internal carotid artery stenosis: 50-69% by velocity criteria. Vertebral artery: Flow direction is antegrade. 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 Vascular surgery consultation is recommended. By velocity criteria, there is a moderate stenosis (between 50 and 69% stenosis) within the left proximal internal carotid artery. The true degree of stenosis is felt most likely to be at the lower end of this range. By velocity criteria, there is also greater than 50% stenosis seen involving the left external carotid artery. Dictated by: Mik Maldonado M.D. on 05/19/2021 at 12:51 Approved by: Mik Maldonado M.D. on 05/19/2021 at 12:53
== END ==
PROVIDERS: PCP Student in an Organized Health Care Education/Training Program; Referring Provider Internal Medicine; Visit Provider Internal Medicine
DX: I63.9 Cerebral infarction, unspecified (principal); I65.23 Occlusion and stenosis of bilateral carotid arteries
CPT/HCPCS: 93880